=== PATIENT | female | born 1965 ===

== ENCOUNTER 2016-12-28 18:30 | Emergency (ER) | payer BC ==
[2016-12-28 18:31] VITALS: BMI 34.9
[2016-12-28 18:46] VITALS: RESP 16
[2016-12-28] MEDS ORDERED: Sodium Chloride 0.9% 1,000 ML IV STA (19:30)
[2016-12-28 19:47] LABS: BASO % 0.4 % (0.0-2.0); EOS % 0.3 % (0.0-4.0); HEMATOCRIT 41.3 % (34.0-47.0); LYMPH # 0.7 K/uL (1.0-4.3); LYMPH % 6.4 % (20.0-40.0); MEAN CELL VOLUME 91.4 fl (81.0-99.0); MEAN CORPUSCULAR HEMOGLOBIN 30.7 pg (27.0-31.0); MEAN CORPUSCULAR HGB CONC 33.5 g/dL (33.0-37.0); MEAN PLATELET VOLUME 8.1 fl (7.2-11.7); MONO # 0.5 K/uL (0.0-0.8); MONO % 4.7 % (0.0-10.0); NEUT # 9.5 K/uL (1.8-7.0); NEUT % 88.2 % (50.0-75.0); PLATELET COUNT 254 K/uL (130-400); RED CELL DISTRIBUTION WIDTH 12.7 % (11.5-14.5); WHITE BLOOD COUNT 10.7 K/uL (4.8-10.8)
[2016-12-28 19:57] LABS: RBC URINE 5 /hpf (0-3); URINE BACTERIA OCC (<OCC); URINE BILIRUBIN NEGATIVE (NEGATIVE); URINE BLOOD MODERATE (NEGATIVE); URINE COLOR YELLOW (YELLOW); URINE GLUCOSE (UA) NEG (Normal); URINE KETONE NEGATIVE (NEGATIVE); URINE LEUKOCYTE ESTERASE NEG Leu/uL (Negative); URINE PROTEIN 30 mg/dL (NEGATIVE); URINE UROBILINOGEN 0.2-1.0 mg/dL (0.2-1.0); WBC URINE 1 /hpf (0-5)
[2016-12-28 19:59] LABS: ALB/GLOB RATIO 1.1 (1.0-2.1); ALKALINE PHOSPHATASE 60 U/L (38-126); ALT/SGPT 30 U/L (9-52); AST/SGOT 26 U/L (14-36); BLOOD UREA NITROGEN 10 mg/dl (7-17); CALCIUM 8.9 mg/dL (8.4-10.2); CARBON DIOXIDE 23 mmol/L (22-30); CHLORIDE 106 mmol/L (98-107); GFR AFRICAN-AMERICAN > 60; GLUCOSE,RANDOM 105 mg/dL (65-105); LIPASE 55 U/L (23-300); POTASSIUM 4.7 MMOL/L (3.6-5.0); SODIUM 141 mmol/l (132-148); TOTAL PROTEIN 7.4 G/DL (6.3-8.2)
--- NOTE | 2016-12-28 20:03 | ED PDOC ---
HPI: Abdomen Time Seen by Provider: 12/28/16 19:05 Chief Complaint (Nursing): Abdominal Pain Chief Complaint (Provider): Abdominal Pain/Nausea/Vomiting/Diarrhea History Per: Patient History/Exam Limitations: no limitations Onset/Duration Of Symptoms: Hrs (since 9:00 AM this morning) Outside of [place] travel?: No Current Symptoms Are (Timing): Constant Location Of Pain/Discomfort: Epigastric Additional Complaint(s): 19:05 Halie Florez is a 51 year old patient that presents to the ED with a chief complaint of nausea, vomiting, diarrhea, and pressure-like epigastric pain that began at 9:00 AM this morning. Patient states that she is unsure of whether or not she ate something to cause this, and that she is the only person sick in her household. She denies any fever, hematemesis, hematochezia, or any recent travel. Of Note: Patient states that she finished a 5 day long course of antibiotics three days ago; she was taking them for a "cold," and does not remember the name of the antibiotics. PMD: Vikki Yancey Past Medical History Reviewed: Historical Data, Nursing Documentation, Vital Signs Vital Signs: Last Vital Signs Temp 98.2 F 12/28/16 18:43 Pulse 86 12/28/16 18:43 Resp 16 12/28/16 18:43 BP 132/71 12/28/16 18:43 Pulse Ox 100 12/28/16 20:06 - Medical History PMH: Denies: Chronic Kidney Disease - Family History Family History: States: Unknown Family Hx - Immunization History Hx Tetanus Toxoid Vaccination: No Hx Influenza Vaccination: Yes Hx Pneumococcal Vaccination: No - Home Medications Home Medications: Ambulatory Orders Medication Instructions Recorded Naproxen [Naprosyn] 500 mg PO Q12H #20 tab 09/03/16 Ondansetron ODT [Zofran ODT] 4 mg PO Q8 #12 odt 12/28/16 - Allergies Allergies/Adverse Reactions: Allergies Allergy/AdvReac Type Severity Reaction Status Date / Time No Known Allergies Allergy Verified 12/28/16 18:43 Review of Systems Constitutional: Negative for: Fever Gastrointestinal: Positive for: Nausea, Vomiting, Abdominal Pain (constant, feels like pressure), Diarrhea. Negative for: Hematochezia, Hematemesis Physical Exam - Reviewed Nursing Documentation Reviewed: Yes Vital Signs Reviewed: Yes - Physical Exam Appears: Positive for: Non-toxic, No Acute Distress Head Exam: Positive for: ATRAUMATIC, NORMOCEPHALIC Skin: Positive for: Normal Color, Warm Eye Exam: Positive for: Normal appearance, EOMI, PERRL ENT: Positive for: Normal ENT Inspection Cardiovascular/Chest: Positive for: Regular Rate, Rhythm. Negative for: Murmur Respiratory: Positive for: Normal Breath Sounds. Negative for: Wheezing Gastrointestinal/Abdominal: Positive for: Soft, Tenderness (mild epigastric tenderness). Negative for: Guarding, Rebound Extremity: Positive for: Normal ROM Neurologic/Psych: Positive for: Alert, Oriented - Laboratory Results Result Diagrams: 12/28/16 19:30 12/28/16 19:30 - ECG O2 Sat by Pulse Oximetry: 100 (RA) Pulse Ox Interpretation: Normal Medical Decision Making Medical Decision Makin:30 Initial Impression: Viral Gastroenteritis Initial Plan: * CBC * CMP * Lipase * Urine culture * Urinalysis * Sodium Chloride 1000 mLs at 1000 mLs/hr * Pepcid 20 mg IV * Zofran 4 mg IV * Reevaluation 2200 Pt. feeling much better, no longer vomiting. PO challenged successfully. Will d /c home. Told to return for worsening or concerning symptoms. Scribe Attestation: Documented by Taniya Mon, acting as a scribe for Wilfredo Fritz MD. Provider Scribe Attestation: All medical record entries made by the Scribe were at my direction and personally dictated by me. I have reviewed the chart and agree that the record accurately reflects my personal performance of the history, physical exam, medical decision making, and the department course for this patient. I have also personally directed, reviewed, and agree with the discharge instructions and disposition. Disposition - Clinical Impression Clinical Impression: Gastroenteritis - Disposition Referrals: Vikki Yancey MD [Medical Doctor] - Disposition: Routine/Home Disposition Time: 22:03 Condition: STABLE Prescriptions: Ondansetron ODT [Zofran ODT] 4 mg PO Q8 #12 odt Instructions: Gastroenteritis (ED)
[2016-12-28 20:34] LABS: NEUTROPHIL 84 % (42-75); TOTAL CELLS COUNTED 100
[2016-12-28 22:16] VITALS: BP 125/80; PULSE 79; TEMP 97.9; O2SAT 99
== END 2016-12-28 22:18 | disposition home or self-care (01) ==
LOC: H.ER 18:30
DX: K52.9 Noninfective gastroenteritis and colitis, unspecified (principal); R10.13 Epigastric pain
CPT/HCPCS: 80053; 81003; 81025; 83690; 85025; 87086; 96361; 96374; 96375; 99283; J2405; J7040